=== PATIENT | female | born 1975 | race Caucasian/White ===

== ENCOUNTER 2020-11-20 18:52 | Emergency (ER) | payer OTHER ==
[2020-11-20 19:12] VITALS: BMI 32.2
[2020-11-20] MEDS ORDERED: ACETAMINOPHEN 500 MG TABLET (FP) PO ONE (20:37)
[2020-11-20] MEDS ORDERED: ACETAMINOPHEN 500 MG TABLET (FP) ONE (20:46)
[2020-11-20] MEDS ORDERED: AZITHROMYCIN 250 MG TABLET PO ONE (23:30)
[2020-11-20] MEDS ORDERED: AZITHROMYCIN 250 MG TABLET ONE (23:45)
[2020-11-21 00:26] VITALS: BP 106/76; PULSE 103; TEMP 99
== END 2020-11-21 01:46 | disposition home or self-care (01) ==
LOC: FER 18:52
DX: U07.1 COVID-19 (principal)
CPT/HCPCS: 71045-TC-FY; 99284-25; C9803; U0003

== ENCOUNTER 2020-11-23 22:27 | Emergency (ER) | payer OTHER ==
[2020-11-23 22:31] VITALS: BP 139/92; PULSE 99; TEMP 98.2; BMI 25.4
[2020-11-23] MEDS ORDERED: SODIUM CHLORIDE 1,000 ML IV STA (23:05)
[2020-11-23 23:46] LABS: BASO % 0.4 % (0-2.0); EOS % 0.6 % (0-4.5); HEMATOCRIT 44.6 % (32.4-45.2); HEMOGLOBIN 14.8 GM/dL (10.7-15.3); LYMPH % 29.4 % (8-40); MCH 28.4 pg (25.7-33.7); MCHC 33.1 g/dl (32.0-36.0); MEAN CELL VOLUME 85.6 fl (80-96); MEAN PLT VOLUME 7.4 fl (7.5-11.1); NEUT % 58.6 % (42.8-82.8); PLATELET COUNT 339 K/MM3 (134-434); RBC 5.21 M/mm3 (3.60-5.2); WHITE BLOOD COUNT 5.1 K/mm3 (4.0-10.0)
[2020-11-24 00:13] LABS: CHLORIDE 108 mmol/L (98-107); POTASSIUM 3.6 mmol/L (3.5-5.1); SODIUM 144 mmol/L (136-145)
[2020-11-24 00:15] LABS: ALBUMIN 3.7 g/dl (3.4-5.0); CALCIUM 8.8 mg/dL (8.5-10.1)
[2020-11-24 00:16] LABS: ANION GAP 10 MMOL/L (8-16); BLOOD UREA NITROGEN 11.6 mg/dL (7-18); CO2 26 mmol/L (21-32); GLUCOSE,RANDOM 103 mg/dL (74-106)
[2020-11-24 00:18] LABS: SGPT/ALT 112 U/L (13-61)
[2020-11-24 00:19] LABS: CREATININE 0.8 mg/dL (0.55-1.3); SGOT/AST 103 U/L (15-37)
[2020-11-24 00:20] LABS: BILIRUBIN,TOTAL 0.7 mg/dL (0.2-1); LDH 367 U/L (84-246); TOT PROT 8.1 g/dl (6.4-8.2)
[2020-11-24 00:21] LABS: ALK PHOS 118 U/L (45-117)
[2020-11-24] MEDS ORDERED: DEXAMETHASONE SOD PHOSPHATE 4 MG/1 ML VIAL IVPUSH ONE (02:47)
[2020-11-24] MEDS ORDERED: DEXAMETHASONE SOD PHOSPHATE 10 MG/1 ML VIAL ONE (03:08)
== END 2020-11-24 03:20 | disposition home or self-care (01) ==
LOC: JER 22:27
PROC: 3E0337Z Introduction of Electrolytic and Water Balance Substance into Peripheral Vein, Percutaneous Approach (ICD-10-PCS; principal; 2020-11-23)
PROC: 3E033NZ Introduction of Analgesics, Hypnotics, Sedatives into Peripheral Vein, Percutaneous Approach (ICD-10-PCS; 2020-11-24)
DX: U07.1 COVID-19 (principal); R07.9 Chest pain, unspecified
CPT/HCPCS: 36415; 71045-TC-FY; 76705-TC; 80053; 82550; 82728; 83615; 84484; 85025; 86140; 93005; 93010; 99285-25

== ENCOUNTER 2022-12-29 18:24 | Emergency (ER) | payer OTHER ==
[2022-12-29 18:45] VITALS: BP 136/70; PULSE 83; RESP 16; TEMP 97.6; BMI 30.6
[2022-12-29] MEDS ORDERED: METOCLOPRAMIDE HCL 10 MG TABLET (FP) PO ONE ×2 (22:08→22:23)
[2022-12-29] MEDS ORDERED: ACETAMINOPHEN 325 MG TABLET (FP) PO ONE (22:08)
[2022-12-29] MEDS ORDERED: ACETAMINOPHEN 325 MG TABLET (FP) ONE (22:23)
[2022-12-29] MEDS ORDERED: PROCHLORPERAZINE INJECTION 10 MG/2 ML VIAL IVPB ONE (23:10)
[2022-12-29] MEDS ORDERED: PROCHLORPERAZINE INJECTION 10 MG/2 ML VIAL ONE (23:14)
[2022-12-30 00:23] LABS: BASO % 0.7 % (0-2.0); EOS % 3.9 % (0-4.5); HEMATOCRIT 41.8 % (32.4-45.2); HEMOGLOBIN 13.9 GM/dL (10.7-15.3); LYMPH % 41.2 % (8-40); MCH 28.5 pg (25.7-33.7); MCHC 33.2 g/dl (32.0-36.0); MEAN CELL VOLUME 85.8 fl (80-96); MEAN PLT VOLUME 7.6 fl (7.5-11.1); MONO % 5.8 % (3.8-10.2); NEUT % 48.4 % (42.8-82.8); PLATELET COUNT 281 10^3/uL (134-434); RBC 4.87 M/mm3 (3.60-5.2); RDW 13.9 % (11.6-15.6)
[2022-12-30 00:47] LABS: ALBUMIN 3.7 g/dl (3.4-5.0); BLOOD UREA NITROGEN 16.3 mg/dL (7-18)
[2022-12-30 00:50] LABS: CREATININE 0.7 mg/dL (0.55-1.3)
[2022-12-30 00:51] LABS: TOT PROT 7.2 g/dl (6.4-8.2)
[2022-12-30 00:52] LABS: BILIRUBIN,TOTAL 0.4 mg/dL (0.2-1)
== END 2022-12-30 01:23 | disposition home or self-care (01) ==
LOC: JER 18:24
PROC: 3E033GC Introduction of Other Therapeutic Substance into Peripheral Vein, Percutaneous Approach (ICD-10-PCS; principal; 2022-12-29)
PROC: 3E033GC Introduction of Other Therapeutic Substance into Peripheral Vein, Percutaneous Approach (ICD-10-PCS; 2022-12-29)
DX: R51.9 Headache, unspecified (principal)
CPT/HCPCS: 36415; 70450-TC; 80053; 84703; 85025; 99284-25

== ENCOUNTER 2024-02-10 14:53 | Emergency (ER) | payer OTHER ==
[2024-02-10 15:14] VITALS: BP 141/71; PULSE 78; RESP 18; TEMP 98; BMI 29.7
== END 2024-02-10 16:52 | disposition home or self-care (01) ==
LOC: JERFT 14:53
DX: M79.644 Pain in right finger(s) (principal); L08.9 Local infection of the skin and subcutaneous tissue, unspecified; W23.0XXA Caught, crushed, jammed, or pinched between moving objects, initial encounter
CPT/HCPCS: 73130-TC-RT-FY; 99283-25

== ENCOUNTER 2024-08-07 14:31 | Emergency (ER) | payer OTHER ==
[2024-08-07] MEDS ORDERED: AMOX TR/POT CLAV 875MG/125MG TABLETS (FP) ONE (16:25)
[2024-08-07] MEDS ORDERED: ACETAMINOPHEN 500 MG TABLET (FP) ONE (16:25)
[2024-08-07] MEDS: ACETAMINOPHEN 500 MG TABLET (FP) PO ONE (16:26)
[2024-08-07] MEDS: AMOX TR/POT CLAV 875MG/125MG TABLETS (FP) PO ONE (16:26)
[2024-08-07 16:33] VITALS: BP 133/55; PULSE 67; RESP 16; TEMP 98.4; BMI 28.9
[2024-08-07 17:35] LABS: HIV INTERPRETATION NEGATIVE (NEGATIVE)
== END 2024-08-07 17:08 | disposition home or self-care (01) ==
LOC: JERFT 14:31
DX: R05.9 Cough, unspecified (principal); R09.81 Nasal congestion; J03.90 Acute tonsillitis, unspecified; J06.9 Acute upper respiratory infection, unspecified; M79.10 Myalgia, unspecified site; R50.9 Fever, unspecified; Z20.822 Contact with and (suspected) exposure to COVID-19
CPT/HCPCS: 0241U-QW; 36415; 71046-TC-FY; 86803; 87389; 99284-25